=== PATIENT | female | born 1945 | race Caucasian/White ===

== ENCOUNTER 2017-06-30 15:14 | Inpatient (IN) | payer OTHER, MEDICARE ==
[~2017-06-30] VITALS: Ht 162.6 cm; Wt 88.5 kg
[2017-06-30 15:52] LABS: HEMATOCRIT 23.9 % (36.0-46.0); HEMOGLOBIN 6.4 G/DL (11.9-15.5); MCH 17.8 PG (29.0-34.0); MCHC 26.8 G/DL (30.0-36.0); MCV 66.6 FL (83-99); PLATELET COUNT 522 K/uL (156-360); RBC DIS.WIDTH-CV 17.9 % (11.8-14.6); RBC DIS.WIDTH-SD 42.8 % (39-53); RED BLOOD COUNT 3.59 M/uL (3.80-5.20); WHITE BLOOD COUNT 8.5 K/uL (4.1-10.2)
[2017-06-30 15:53] LABS: CHLORIDE 105 mEq/L (99-109); SODIUM 138 mEq/L (136-147)
[2017-06-30 15:54] LABS: GLUCOSE 131 mg/dL (70-99)
[2017-06-30 15:58] LABS: GFR ESTIMATE (CALCULATED) 58 mL/min/
[2017-06-30 15:59] LABS: UREA NITROGEN (BUN) 13 mg/dL (9-23)
[2017-06-30] MEDS ORDERED: PRAVASTATIN SOD20 MG PO (16:40)
[2017-06-30] MEDS ORDERED: VERAPAMIL HCL240 MG PO ×2 (16:42→16:45)
[2017-06-30] MEDS ORDERED: ASPIRIN81 M2 PO (16:45)
[2017-06-30 18:38] LABS: TRANSFERRIN (TIBC) 431.9 mg/dL (215-380)
[2017-06-30 19:03] LABS: FOLIC ACID (FOLATE) 20.4 NG/ML (5.0-22.0)
[2017-06-30 20:05] LABS: FERRITIN 2 NG/ML (10-291)
[2017-06-30 20:41] VITALS: BP 141/60
[2017-06-30 21:01] VITALS: BP 142/65
[2017-06-30 22:01] VITALS: BP 142/66
[2017-06-30 23:01] VITALS: BP 140/64
[2017-06-30 23:15] LABS: IMM.RETIC FRACTION 22.3 % (3-19); RETIC HGB EQUIVALENT 17.3 (28-36); RETICULOCYTE COUNT 1.7 % (0.5-1.8)
[2017-06-30 23:25] VITALS: BP 142/62
[2017-07-01] VITALS (12 sets, daily range): BP systolic 119–149; BP diastolic 59–67
[2017-07-01 00:16] LABS: IRON < 10 MCG/DL (35-150); TRANSFERRIN SATUR. 2 % (20-55)
[2017-07-01 06:39] LABS: HEMATOCRIT 31.6 % (36.0-46.0); MCH 21.1 PG (29.0-34.0); MCHC 29.7 G/DL (30.0-36.0); NRBC (%) 0.3 /100 WBC (0-0); PLATELET COUNT 434 K/uL (156-360); RBC DIS.WIDTH-CV 20.5 % (11.8-14.6); RBC DIS.WIDTH-SD 51.8 % (39-53); WHITE BLOOD COUNT 6.1 K/uL (4.1-10.2)
[2017-07-01 06:40] LABS: HEMOGLOBIN 9.4 G/DL (11.9-15.5); RED BLOOD COUNT 4.45 M/uL (3.80-5.20)
[2017-07-01 06:42] LABS: INTER. NORMALIZED RATIO 1.1
[2017-07-01 07:08] LABS: ALBUMIN 3.9 G/DL (3.2-4.8); ALKALINE PHOSPHATASE 58 IU/L (3-129); ALT (GPT) 7 IU/L (3-49); AST (GOT) 11 IU/L (2-34); CHLORIDE 108 MEQ/L (99-109); CREATININE 0.8 MG/DL (0.6-1.3); GFR ESTIMATE (CALCULATED) > 59 mL/min/; POTASSIUM 4.2 MEQ/L (3.7-5.4); SODIUM 141 MEQ/L (136-147); TOTAL PROTEIN 6.4 G/DL (6.4-8.3); UREA NITROGEN (BUN) 10 mg/dL (9-23)
[2017-07-01 07:09] LABS: GLUCOSE 92 mg/dL (70-99); TOTAL BILIRUBIN 2.1 MG/DL (0.0-1.0)
[2017-07-01 08:50] LABS: THYROTROPIN (TSH) 1.3 MIU/L (0.4-5.5)
[2017-07-02 00:07] VITALS: BP 127/59
[2017-07-02 04:03] VITALS: BP 131/62
[2017-07-02 04:56] LABS: BASOPHIL (%) 0.5 % (0-1); CHLORIDE 109 mEq/L (99-109); EOSINOPHIL (%) 1.6 % (0-5); EOSINOPHIL COUNT 0.1 K/uL (0-0.3); HEMATOCRIT 32.1 % (36.0-46.0); HEMOGLOBIN 9.4 G/DL (11.9-15.5); IMMATURE GRANULOCYTE (%) 0.5 % (0.0-0.7); LYMPHOCYTE (%) 25.3 % (15-42); LYMPHOCYTE COUNT 1.6 K/uL (1.0-2.8); MCHC 29.3 G/DL (30.0-36.0); MCV 71.7 FL (83-99); MONOCYTE (%) 10.5 % (3-12); MONOCYTE COUNT 0.7 K/uL (0-0.8); NEUTROPHIL (%) 61.6 % (45-76); NEUTROPHIL COUNT 3.8 K/uL (1.8-6.4); PLATELET COUNT 417 K/uL (156-360); POTASSIUM 4.1 mEq/L (3.7-5.4); RBC DIS.WIDTH-CV 20.6 % (11.8-14.6); RBC DIS.WIDTH-SD 52.3 % (39-53); RED BLOOD COUNT 4.48 M/uL (3.80-5.20); SODIUM 141 mEq/L (136-147); WHITE BLOOD COUNT 6.2 K/uL (4.1-10.2)
[2017-07-02 04:58] LABS: GLUCOSE 74 mg/dL (70-99)
[2017-07-02 05:02] LABS: CREATININE 0.8 mg/dL (0.6-1.3); GFR ESTIMATE (CALCULATED) > 59 mL/min/; PHOSPHORUS 3.7 mg/dL (2.5-4.9)
[2017-07-02 05:03] LABS: UREA NITROGEN (BUN) 10 mg/dL (9-23)
[2017-07-02 07:26] VITALS: BP 141/66
[2017-07-02 11:10] VITALS: BP 154/70
[2017-07-02 19:44] VITALS: BP 146/67
[2017-07-03] VITALS: BP 142/68
[2017-07-03 04:26] VITALS: BP 140/66
[2017-07-03 06:01] LABS: BASOPHIL (%) 0.3 % (0-1); EOSINOPHIL (%) 3.3 % (0-5); EOSINOPHIL COUNT 0.2 K/uL (0-0.3); HEMATOCRIT 30.9 % (36.0-46.0); HEMOGLOBIN 9.1 G/DL (11.9-15.5); IMMATURE GRANULOCYTE (%) 0.1 % (0.0-0.7); LYMPHOCYTE (%) 20.1 % (15-42); LYMPHOCYTE COUNT 1.3 K/uL (1.0-2.8); MCH 21.4 PG (29.0-34.0); MCHC 29.4 G/DL (30.0-36.0); MCV 72.5 FL (83-99); MONOCYTE (%) 8.1 % (3-12); MONOCYTE COUNT 0.5 K/uL (0-0.8); NEUTROPHIL (%) 68.1 % (45-76); NEUTROPHIL COUNT 4.6 K/uL (1.8-6.4); PLATELET COUNT 376 K/uL (156-360); RBC DIS.WIDTH-CV 21.8 % (11.8-14.6); RBC DIS.WIDTH-SD 55.3 % (39-53); RED BLOOD COUNT 4.26 M/uL (3.80-5.20); WHITE BLOOD COUNT 6.7 K/uL (4.1-10.2)
[2017-07-03 07:21] VITALS: BP 176/72
[2017-07-03 11:00] VITALS: BP 133/60
[2017-07-03] MEDS ORDERED: ERGOCALCIF50000 UNIT PO (15:13)
[2017-07-03] MEDS ORDERED: PROTONIX40 MG PO (15:14)
== END 2017-07-03 15:50 | disposition home or self-care (01) | DRG 379 ==
LOC: EME 15:14 → EDOF 18:59 → 4EAST 18:59 → ENRESERV 19:00 → 4EAST 21:50
PROVIDERS: Emergency Medicine; Internal Medicine; Internal Medicine Gastroenterology
PROC: 30233N1 Transfusion of Nonautologous Red Blood Cells into Peripheral Vein, Percutaneous Approach (ICD-10-PCS; principal; 2017-06-30)
PROC: 0DB98ZX Excision of Duodenum, Via Natural or Artificial Opening Endoscopic, Diagnostic (ICD-10-PCS; 2017-07-01)
PROC: 0DJD8ZZ Inspection of Lower Intestinal Tract, Via Natural or Artificial Opening Endoscopic (ICD-10-PCS; 2017-07-02)
DX: K92.2 Gastrointestinal hemorrhage, unspecified (principal); D50.9 Iron deficiency anemia, unspecified; I10 Essential (primary) hypertension; E78.5 Hyperlipidemia, unspecified; F41.9 Anxiety disorder, unspecified; D51.9 Vitamin B12 deficiency anemia, unspecified; D17.9 Benign lipomatous neoplasm, unspecified; D25.9 Leiomyoma of uterus, unspecified; E55.9 Vitamin D deficiency, unspecified; K44.9 Diaphragmatic hernia without obstruction or gangrene; K64.8 Other hemorrhoids; E27.9 Disorder of adrenal gland, unspecified; K26.9 Duodenal ulcer, unspecified as acute or chronic, without hemorrhage or perforation; K57.30 Diverticulosis of large intestine without perforation or abscess without bleeding; K56.41 Fecal impaction; D47.3 Essential (hemorrhagic) thrombocythemia
CPT/HCPCS: 36415; 74177; 80048; 80053; 80061; 80069; 81003; 82272; 82306; 82607; 82728; 82746; 83010 90; 83540; 84439; 84443; 84466; 85025; 85027; 85046; 85610; 86850; 86880; 86900; 86901; 86920; 88305; 88342 TC; 99281; 99285; C9113; J2250; J2405; P9016